=== PATIENT | female | born 1980 | race Caucasian/White ===

== ENCOUNTER 2025-05-25 07:54 | Day surgery (SDC) | payer BC, OTHER ==
[2025-05-25] MEDS: Lactated Ringers 1,000 ML IV SCH (08:45)
[2025-05-25] MEDS ORDERED: Propofol 200 MG/20 ML SDV ONE (08:56)
[2025-05-25] MEDS ORDERED: fentaNYL 50 MCG/ML SDV ONE (08:56)
[2025-05-25] MEDS ORDERED: Midazolam 1 MG/ML 2 ML SDV ONE (08:56)
== END 2025-05-25 11:04 | disposition home or self-care (01) ==
LOC: JP.SDS 07:54
PROVIDERS: ATTEND Surgery
DX: Z12.11 Encounter for screening for malignant neoplasm of colon (principal); K29.50 Unspecified chronic gastritis without bleeding; K22.89 Other specified disease of esophagus; R13.10 Dysphagia, unspecified; Z88.8 Allergy status to other drugs, medicaments and biological substances
CPT/HCPCS: 00813; 43239; 45378; J2250; J2704; J3010; J7120; 88305